=== PATIENT | male | born 1970 | race Caucasian/White ===

== ENCOUNTER → 2021-01-23 | Outpatient (CLI) | payer BC | LOC: MRI 14:50 | PROVIDERS: ATTEND Specialist | DX: M54.31 Sciatica, right side (principal) | CPT/HCPCS: 72148 ==

== ENCOUNTER 2021-03-13 09:00 | Outpatient (RCR) | payer BC | END 2021-03-17 | LOC: PT 09:00 | PROVIDERS: ATTEND Specialist | DX: S39.012D Strain of muscle, fascia and tendon of lower back, subsequent encounter (principal); M54.31 Sciatica, right side ==